=== PATIENT | female | born 2000 | race Caucasian/White ===

== ENCOUNTER 2019-01-24 08:12 | Emergency (ER) | payer OTHER ==
--- NOTE | 2019-01-24 08:21 | EDPHY ---
H & P Stated Complaint: Chest pain into left arm Time Seen by Provider: 01/24/19 08:21 - Personal History LMP (Females 10-55): Over 28 Days Ago Current Tetanus/Diphtheria Vaccine: Yes - Medical/Surgical History Hx Asthma: No Hx Chronic Respiratory Disease: No Hx Diabetes: No Hx Cardiac Disease: No Hx Renal Disease: No Hx Cirrhosis: No Hx Alcoholism: No Other PMH: Lower back pain - Social History Smoking Status: Never smoked Constitutional: Initial Vital Signs Temperature (C) 36.7 C 01/24/19 08:15 Heart Rate 108 H 01/24/19 08:15 Respiratory Rate 18 01/24/19 08:15 Blood Pressure 150/101 H 01/24/19 08:15 O2 Sat (%) 98 01/24/19 08:15 O2 Delivery Mode Room Air Allergies/Adverse Reactions: No Known Allergies Allergy (Unverified 01/24/19 08:18) Home Medications: Medication Instructions Recorded NK [No Known Home Meds] 01/24/19 Medical Decision Making - Diagnostics Imaging: I viewed and interpreted images myself ED Course/Re-evaluation: CHIEF COMPLAINT: Chest pain HISTORY OF PRESENT ILLNESS: The patient is a 18 y/o female complaining of left-sided chest pain radiating into her back and left arm. The patient had a viral illness around 1 month ago that lasted for 5 days. For the last several night she has developed chest pain while lying down. Last night the pain exacerbated and she was unable to sleep. This pain is primarily dull in nature but is intermittently stabbing. It is exacerbate while lying down and improves when sitting up. No fever, headache, body aches, lightheadedness, heart palpitations, shortness of breath, cough, abdominal pain, urinary or bowel complaints, numbness, paresthesias. REVIEW OF SYSTEMS: A comprehensive 10 system review of systems is otherwise negative aside from elements mentioned in the history of present illness and medical decision making. PHYSICAL EXAM: HR, BP, O2 Sat, RR. Temp noted General Appearance: Alert, well hydrated, appropriate, and non-toxic appearing. Head: Atraumatic without scalp tenderness or obvious injury Eyes: Pupils equal, round, reactive to light and accommodation, EOMI, no trauma , no injection. Ears: Clear bilaterally, no perforation, normal landmarks Nose: Atraumatic, no rhinorrhea, clear. Throat: There is no erythema or exudates, no lesions, normal tonsils, mucus membranes moist. Neck: Supple, 2+ carotid upstroke, nontender, no lymphadenopathy. Respiratory: No retractions, no distress, no wheezes, and no accessory muscle use. Lungs are clear to auscultation bilaterally. Cardiovascular: Minor rub while sitting up. Regular rate and rhythm, no murmurs , or gallops. Bilateral carotid, radial, dorsalis pedis, and posterior tibial pulses intact. Good capillary refill all extremities. Gastrointestinal: Abdomen is soft, nontender, non-distended, no masses, no rebound, no guarding, no peritoneal signs. Musculoskeletal: Normal active ROM of all extremities, atraumatic. Neurological: Alert, appropriate, and interactive. The patient has normal DTRs and non-focal cranial nerves, motor, sensory, and cerebellar exam. Skin: No rashes, good turgor, no nodules on palpation. Past medical history: Indigestion, low back pain Past surgical history: Denies Family history: Denies Social history: Student at , single, lives in [place] DIAGNOSTICS/PROCEDURES/CRITICAL CARE TIME: EKG: The 12 lead EKG was interpreted by myself as sinus rhythm with a rate of 89 and NC depression primarily in the inferior leads. See hard copy and/or "tracemaster" electronic copy for interpretation. Chest x-ray: No acute findings. DIFFERENTIAL DIAGNOSIS: The differential diagnosis for the patient's chest pain included but was not limited to myocardial ischemia, pulmonary embolus, chest wall pain, pleural inflammation, and pulmonary infectious causes. MEDICAL DECISION MAKING: The patient is a 18 y/o female presenting with left-sided chest pain radiating into her back and left arm. The patient had a viral illness around 1 month ago that lasted for 5 days. For the last several night she has developed chest pain while lying down. On exam she has a minor rub while leaning forward. I suspect she has pericarditis. Chest x-ray and EKG ordered. 0833: I interpreted patient's EKG as sinus rhythm with a rate of 89 and NC depression primarily in the inferior leads. Patient's EKG is indicative of pericarditis. I will prescribe her Colchicine and Motrin; her first dose of colchicine will be given prior to admission. Chest x-ray still pending. 0850: I reviewed patient's chest x-ray which is unremarkable. 0858: Reassessed patient and discussed imaging and EKG findings. She is comfortable with plan to take Colchicine and Motrin. I have also advised her to take Pepcid for indigestion. Return precautions provided; patient is comfortable with this plan. Departure - Departure Disposition: Home, Routine, Self-Care Clinical Impression: Pericarditis Qualifiers: Pericarditis type: infectious Infectious pericarditis etiology: viral Chronicity: acute Qualified Code(s): I30.1 - Infective pericarditis Condition: Good Instructions: Acute Pericarditis (ED) Additional Instructions: 1. Take Colchicine and Motrin as prescribed for pericarditis. 2. Return to the Emergency Department for fever, chest pain, shortness of breath , increasing pain or other worsening of condition. 3. I have also referred you to a GI for your GI discomfort. 4. Buy Pepcid over the counter, you can take this once daily for 30 days for your indigestion. Referrals: Juventino Vicente MD [Medical Doctor] - As per Instructions [facility],. [Clinic] - As per Instructions Report Scribed for: Tai Green Report Scribed by: Laurita Rodriguez Date of Report: 01/24/19 Time of Report: 08:24
[2019-01-24] MEDS ORDERED: IBUPROFEN 800 MG TAB PO ONE (08:50)
[2019-01-24] MEDS ORDERED: COLCHICINE 0.6 MG CAP/TAB PO ONE (08:50)
[2019-01-24 09:00] VITALS: BP 132/84
--- NOTE | 2019-01-30 14:36 | CPEKG ---
Test Reason : OPEN Blood Pressure : / mmHG Vent. Rate : 089 BPM Atrial Rate : 089 BPM P-R Int : 172 ms QRS Dur : 080 ms QT Int : 379 ms P-R-T Axes : 073 068 035 degrees QTc Int : 462 ms Sinus rhythm Confirmed by Tai Green ([id number]) on 01/30/2019 2:36:07 PM Referred By: Tai Green Confirmed By:Tai Green
== END 2019-01-24 09:05 | disposition home or self-care (01) ==
DX: I30.1 Infective pericarditis (principal)

== ENCOUNTER 2019-02-08 03:20 | Emergency (ER) | payer OTHER ==
--- NOTE | 2019-02-08 03:45 | EDPHY ---
H & P Stated Complaint: recent pericarditis, now 3 days of worsening neck pain and dizziness Time Seen by Provider: 02/08/19 03:45 HPI/ROS: HPI CHIEF COMPLAINT: Neck discomfort, lightheadedness. HISTORY OF PRESENT ILLNESS: Patient is a 18-year-old female, she had a recent ER visit for pericarditis, she has been taking colchicine and ibuprofen. She presents emergency room stating that she over last 24-48 hours had some neck pain. She describes paravertebral neck pain, and down into her bilateral shoulders. She complains of stiffness. She denies any headache, denies fever, denies actual stiff neck, she feels tense. She denies any chest pain or shortness of breath or productive cough. Past Medical History: Recent diagnosis of pericarditis on 01/24. Past Surgical History: No recent surgery Social History: Denies drugs alcohol tobacco. Family History: Noncontributory ROS REVIEW OF SYSTEMS: 10 Systems were reviewed and negative with the exception of the elements mentioned in the history of present illness. Exam Constitutional triage nursing summary reviewed, vital signs reviewed, awake/ alert. Vital signs stable. Eyes normal conjunctivae and sclera, EOMI, PERRLA. HENT normal inspection, atraumatic, moist mucus membranes, no epistaxis, neck supple/ no meningismus, no raccoon eyes. Respiratory clear to auscultation bilaterally, normal breath sounds, no respiratory distress, no wheezing. Cardiovascular rate normal, regular rhythm, no murmur, no edema, distal pulses normal. Gastrointestinal soft, non-tender, no rebound, no guarding, normal bowel sounds, no distension, no pulsatile mass. Genitourinary no CVA tenderness. Musculoskeletal no midline vertebral tenderness, full range of motion, no calf swelling, no tenderness of extremities, no meningismus, good pulses, neurovascularly intact. Skin pink, warm, & dry, no rash, skin atraumatic. Neurologic awake, alert and oriented x 3, AAOx3, moves all 4 extremities equally, motor intact, sensory intact, CN II-XII intact, normal cerebellar, normal vision, normal speech. Psychiatric normal mood/affect. Heme/Lymph/Immune no lymphadenopathy. Differential Diagnosis: Includes but is not limited to in a particular order dehydration, electrolyte disturbance, anemia, gastritis, viral illness, also considered meningitis encephalitis which I think is unlikely given history and physical exam. Medical Decision Making: Plan for this patient EKG, chest x-ray, IV fluids, electrolytes, and re-evaluate. Re-evaluation: EKG interpretation by me on record in [employer] system. Impression time of EKG 4:04 a.m. Normal sinus rhythm rate of 69 no signs of acute ischemia. No signs of cardiac arrhythmia or prolonged intervals. Troponin 0.02 Chest x-ray one view reviewed by myself negative for acute cardiopulmonary disease. No cardiomegaly or infiltrate. Patient re-evaluated 6:52 a.m. She is resting comfortably in no acute distress in fact she fell asleep for multiple hours here. She denies any headache, neck pain fever vomiting. There is no meningeal signs on exam her neurological exam is unremarkable. Her labs have been reviewed. EKG unremarkable Troponin negative Chest x-ray reveals no evidence of cardiomegaly or infiltrate. She is feeling better. I do recommend she stays well hydrated and rest. I do believe her neck discomfort is musculoskeletal nature unlikely to be meningitis. We discussed return precautions she understands return emergency room if develops worsening pain, fever, vomiting, not doing well She is comfortable with this plan. Source: Patient - Personal History LMP (Females 10-55): Over 28 Days Ago Current Tetanus/Diphtheria Vaccine: Yes Current Tetanus Diphtheria and Acellular Pertussis (TDAP): Yes - Medical/Surgical History Hx Asthma: No Hx Chronic Respiratory Disease: No Hx Diabetes: No Hx Cardiac Disease: No Hx Renal Disease: No Hx Cirrhosis: No Hx Alcoholism: No Other PMH: Lower back pain - Social History Smoking Status: Never smoked Constitutional: Initial Vital Signs Temperature (C) 36.7 C 02/08/19 03:25 Heart Rate 89 02/08/19 03:25 Respiratory Rate 18 02/08/19 03:25 Blood Pressure 136/86 H 02/08/19 03:25 O2 Sat (%) 99 02/08/19 03:25 O2 Delivery Mode Room Air Allergies/Adverse Reactions: No Known Allergies Allergy (Unverified 02/08/19 03:21) Home Medications: Medication Instructions Recorded Colchicine 0.6 mg PO BID #30 tablet 01/24/19 Ibuprofen [Motrin] 800 mg PO Q8 #20 tab 01/24/19 Medical Decision Making - Data Points Laboratory Results: Laboratory Results 02/08/19 04:15 02/08/19 04:15 02/08/19 02/08/19 02/08/19 04:19 04:15 04:15 WBC RBC Hgb Hct MCV MCH MCHC RDW Plt Count MPV Neut % (Auto) Lymph % (Auto) [place] % (Auto) Eos % (Auto) Baso % (Auto) Nucleat RBC Rel Count Absolute Neuts (auto) Absolute Lymphs (auto) Absolute Monos (auto) Absolute Eos (auto) Absolute Basos (auto) Absolute Nucleated RBC Immature Gran % Immature Gran # RBC/WBC/PLT Morphology Platelet Estimate Sodium 139 mEq/L mEq/L (135-145) Potassium 3.8 mEq/L mEq/L (3.5-5.2) Chloride 105 mEq/L mEq/L (97-110) Carbon Dioxide 25 mEq/l mEq/l (22-31) Anion Gap 9 mEq/L mEq/L (6-14) BUN 15 mg/dL mg/dL (7-23) Creatinine 0.8 mg/dL mg/dL (0.6-1.0) Estimated GFR > 60 Glucose 91 mg/dL mg/dL (70-100) Calcium 9.1 mg/dL mg/dL (8.5-10.4) Magnesium 1.8 mg/dL mg/dL (1.6-2.3) POC Troponin I 0.02 ng/mL ng/mL (0.00-0.08) Beta HCG, Qual NEGATIVE 02/08/19 04:15 WBC 9.49 10^3/uL 10^3/uL (3.80-9.50) RBC 4.66 10^6/uL 10^6/uL (4.18-5.33) Hgb 13.8 g/dL g/dL (12.6-16.3) Hct 40.1 % % (38.0-47.0) MCV 86.1 fL fL (81.5-99.8) MCH 29.6 pg pg (27.9-34.1) MCHC 34.4 g/dL g/dL (32.4-36.7) RDW 11.5 % % (11.5-15.2) Plt Count 285 10^3/uL 10^3/uL (150-400) MPV 9.3 fL fL (8.7-11.7) Neut % (Auto) 28.2 % L % (39.3-74.2) Lymph % (Auto) 42.8 % % (15.0-45.0) [place] % (Auto) 6.7 % % (4.5-13.0) Eos % (Auto) 21.4 % H % (0.6-7.6) Baso % (Auto) 0.8 % % (0.3-1.7) Nucleat RBC Rel Count 0.0 % % (0.0-0.2) Absolute Neuts (auto) 2.68 10^3/uL 10^3/uL (1.70-6.50) Absolute Lymphs (auto) 4.06 10^3/uL H 10^3/uL (1.00-3.00) Absolute Monos (auto) 0.64 10^3/uL 10^3/uL (0.30-0.80) Absolute Eos (auto) 2.03 10^3/uL H 10^3/uL (0.03-0.40) Absolute Basos (auto) 0.08 10^3/uL 10^3/uL (0.02-0.10) Absolute Nucleated RBC 0.00 10^3/uL 10^3/uL (0-0.01) Immature Gran % 0.1 % % (0.0-1.1) Immature Gran # 0.01 10^3/uL 10^3/uL (0.00-0.10) RBC/WBC/PLT Morphology TNP Platelet Estimate TNP Sodium Potassium Chloride Carbon Dioxide Anion Gap BUN Creatinine Estimated GFR Glucose Calcium Magnesium POC Troponin I Beta HCG, Qual Medications Given: Discontinued Medications Sodium Chloride (Ns) 1,000 mls @ 0 mls/hr IV EDNOW ONE; Wide Open PRN Reason: Protocol Stop: 02/08/19 03:57 Last Admin: 02/08/19 04:21 Dose: 1,000 mls Point of Care Test Results: Chemistry 02/08/19 04:19 POC Troponin I 0.02 ng/mL ng/mL (0.00-0.08) Departure - Departure Disposition: Home, Routine, Self-Care Clinical Impression: Lightheaded Condition: Good Instructions: Near Syncope (ED), Lightheadedness (ED) Additional Instructions: 1. Drink lots of fluids stay well-hydrated 2. Rest. 3. Return to the emergency room if develops worsening symptoms Referrals: NONE *PRIMARY CARE P,. [Primary Care Provider] - As per Instructions [facility] [Clinic] - As per Instructions
[2019-02-08] MEDS ORDERED: NS 1,000 ML IV ONE (03:56)
[2019-02-08 04:28] LABS: PLATELET COUNT 285 10^3/uL (150-400)
[2019-02-08 06:56] VITALS: BP 154/83
--- NOTE | 2019-02-16 21:51 | CPEKG ---
Test Reason : OPEN Blood Pressure : / mmHG Vent. Rate : 069 BPM Atrial Rate : 068 BPM P-R Int : 159 ms QRS Dur : 088 ms QT Int : 414 ms P-R-T Axes : 053 063 041 degrees QTc Int : 444 ms Sinus rhythm Confirmed by Jerome Lao ([id number]) on 02/16/2019 9:50:46 PM Referred By: Jerome Lao Confirmed By:Jerome Lao
== END 2019-02-08 06:56 | disposition home or self-care (01) ==
DX: R42 Dizziness and giddiness (principal); M54.2 Cervicalgia; E86.9 Volume depletion, unspecified
CPT/HCPCS: 84484-ER